=== PATIENT | female | born 1980 | race Two or more races ===

== ENCOUNTER 2020-11-18 12:20 | Outpatient (CLI) | payer OTHER | END 2020-11-18 12:37 | disposition home or self-care (01) | LOC: MAMO-SONO 12:20 | PROVIDERS: ATTEND Obstetrics & Gynecology Obstetrics | DX: Z12.31 Encounter for screening mammogram for malignant neoplasm of breast (principal); N63.0 Unspecified lump in unspecified breast; N64.0 Fissure and fistula of nipple ==

== ENCOUNTER 2020-11-23 07:59 | Outpatient (CLI) | payer OTHER | END 2020-11-23 08:32 | disposition home or self-care (01) | LOC: MRI 07:59 → EDBD 08:15 → MRI 08:15 | PROVIDERS: ATTEND Obstetrics & Gynecology Obstetrics | DX: N93.9 Abnormal uterine and vaginal bleeding, unspecified (principal) | CPT/HCPCS: 72196 ==

== ENCOUNTER 2020-12-03 14:47 | Outpatient (CLI) | payer OTHER | END 2020-12-03 14:57 | disposition home or self-care (01) | LOC: LAB 14:47 | PROVIDERS: ATTEND Obstetrics & Gynecology Obstetrics | DX: N91.1 Secondary amenorrhea (principal) ==